=== PATIENT | male | born 1970 | race Caucasian/White ===

== ENCOUNTER → 2018-09-16 | Outpatient (CLI) | payer BC ==
[~2018-09-16] MED LIST: NAPR220C4 PO
--- NOTE | 2018-09-17 02:57 | PAIN ---
DATE OF SERVICE: 09/16/2018 INITIAL CONSULTATION FOR PAIN CLINIC CHIEF COMPLAINT: Right shoulder pain. HISTORY OF PRESENT ILLNESS: This is a 48-year-old male who presents with history of pain for about 7 weeks, was lifting weights, doing bench presses and had some significant pain with extending the arm on the right side in the anterior aspect of the shoulder. This was 7 weeks ago. The patient reports he has been taking it easy on the weights. He is still doing some weightlifting, has been doing much different exercises without bench pressing and doing supply chain project manager weights as well. The patient reports the pain is still there, he has been trying Motrin, Advil, also Tylenol and Aleve [id number] which does decrease the pain by only about 25-30%. The patient reports he has had chiropractic treatment, which has not helped the shoulder as well. Wakes him from sleep at least once at night and otherwise he is doing fairly well with it, but it is still significantly painful. The patient reports it changes during the day, worse with activity, lifting items, reaching forward or up over his head with his right arm. No pain with reaching backwards or to the side and no difficulty with carrying items at his side, although he is being careful with this as well with only light weights. The patient reports a disability rate from 0-10, 10 being the worst, is a 5 with family home responsibilities, 7 with recreation, 6 with social activity, 0 with occupation and sexual behavior, 1 with self-care and 1 with life support activities. PAST MEDICAL HISTORY: Significant for irregular heart rhythm, sleep apnea, quit smoking 6 years ago. Previous 1 pack a day for 10 years. PREVIOUS SURGERY: Include tonsillectomy and bilateral LASIK procedure. CURRENT MEDICATIONS: Include only [id number] Aleve, Motrin and Tylenol. ALLERGIES: The patient has no known drug allergies. FAMILY HISTORY: Significant for diabetes in the patient's mother. SOCIAL HISTORY: The patient drinks about 3 or 5 alcoholic drinks a week, does not smoke, quit many years ago. Does not use any illegal, illicit or recreational drugs. He is , lives with his spouse, has 2 children at home, lives in [place], [place] and works as a real estate promoter. REVIEW OF SYSTEMS: The patient's review of systems is positive for those items mentioned in history of present illness. All systems reviewed and otherwise negative. It is complete, full and well documented on the patient's chart. PHYSICAL EXAMINATION: VITAL SIGNS: The patient's blood pressure is 157/101, pulse 65, respirations 18, temperature is 98.8 degrees Fahrenheit, height 5 feet 10 inches, weight is 295 pounds. GENERAL: The patient is awake, alert, oriented, appropriate, very pleasant demeanor. HEENT: Head is normocephalic, atraumatic. Extraocular movements are intact and symmetrical. Oral cavity: Mucous membranes moist and pink. Dentition is intact. NECK: Shows anterior throat supple. CHEST: Shows normal with inspection. Breath sounds are clear to auscultation bilaterally. HEART: Shows S1, S2 clear. ABDOMEN: Soft, nontender, nondistended. BACK: The patient's upper extremities show deep tendon reflexes 2+ in the biceps and triceps tendons. Motor exam is strong with assistant toddler teacher strength rated 5/5 as is biceps and triceps flexion. The patient has some minor pain reported with biceps flexion, resistance on the right side without loss of strength on resistance. The patient shows good rotational motion of both abduction of the shoulders bilaterally which is mildly painful in the anterior aspect of the right shoulder with 90-degree abduction, but no difficulty with resistance with abduction. With adduction, the patient reports pain, but no loss of strength on resistance with the shoulder at 90 degrees on the right side as well. Shoulder shrug is strong and intact without loss of strength on resistance as well. Peripheral pulses are 2+ radial distribution. No peripheral edema is noted bilaterally. IMPRESSION: 1. This is a 48-year-old male with approximately a 7-week history of acute pain after weightlifting right shoulder consistent with some biceps tendinitis and myofascial pain. 2. History of cigarette smoking. PLAN: Options were discussed with the patient including conservative medical management, physical therapy, interventional techniques. He would like to pursue most conservative measures. We will have the patient enroll in the physical therapy. The patient was given orders to take. He has a Physical Therapy Clinic near his home, which he has used in the past. He would like to have treatment done there. We will give him the order to hand carry per his request to the Physical Therapy Clinic for work on the shoulder with range of motion, strength and stretching exercises as well as massage and heat therapies as deemed necessary. The patient will follow up after physical therapy is completed in approximately 4 weeks or sooner if necessary. The patient was also given a Medrol Dosepak with instructions, side effects to be aware of and this may help decrease some of the acute inflammation and the pain in the shoulder as well. EDISON FORD MD DR: ELENA/humberto JOB#: [id number] / [id number]
== END | disposition home or self-care (01) ==
LOC: PNCL 12:40
PROVIDERS: ATTEND Anesthesiology
DX: M75.21 Bicipital tendinitis, right shoulder (principal); M79.18 Myalgia, other site; G47.30 Sleep apnea, unspecified; Z87.891 Personal history of nicotine dependence; Z83.3 Family history of diabetes mellitus
CPT/HCPCS: G0463